=== PATIENT | female | born 1970 | race Two or more races ===

== ENCOUNTER 2018-11-24 16:32 | Emergency (ER) | payer OTHER ==
[~2018-11-24] VITALS: Ht 154.9 cm; Wt 69.4 kg
== END 2018-11-24 18:13 | disposition home or self-care (01) ==
LOC: ER 16:32
DX: S01.82XA Laceration with foreign body of other part of head, initial encounter (principal); W54.0XXA Bitten by dog, initial encounter; Y93.89 Activity, other specified; Y92.89 Other specified places as the place of occurrence of the external cause; Y99.8 Other external cause status

== ENCOUNTER 2022-01-08 17:06 | Emergency (ER) | payer OTHER ==
[~2022-01-08] VITALS: Ht 154.9 cm; Wt 68.9 kg
== END 2022-01-08 21:09 | disposition home or self-care (01) ==
LOC: ER 17:06
DX: S60.012A Contusion of left thumb without damage to nail, initial encounter (principal); X58.XXXA Exposure to other specified factors, initial encounter; Y93.89 Activity, other specified; Y92.89 Other specified places as the place of occurrence of the external cause; Y99.9 Unspecified external cause status

== ENCOUNTER 2024-03-01 19:22 | Emergency (ER) | payer OTHER ==
[~2024-03-01] VITALS: Ht 160 cm; Wt 71.7 kg
[2024-03-01 21:52] LABS: HEMOGLOBIN 13.6 g/dL (12.0-15.00); MEAN CELL VOLUME 88.3 fL (80.00-100.00); MEAN CORPUSCULAR HGB CONC 33.9 g/dl (32.0-36.0); PLATELET COUNT 213 K/uL (150-450); RED BLOOD COUNT 4.53 M/uL (4.00-6.00); RED CELL DISTRIBUTION WIDTH 13.4 % (11.5-14.5)
[2024-03-01] MEDS ORDERED: KETOROLAC TROMETHAMINE 30 MG VIAL IM STA (22:07)
[2024-03-01] MEDS ORDERED: GUAIFENESIN 200 MG/10 ML BLIST.PACK PO STA (22:09)
[2024-03-01] MEDS ORDERED: KETOROLAC TROMETHAMINE 30 MG VIAL ONE (22:24)
[2024-03-01] MEDS ORDERED: GUAIFENESIN 200 MG/10 ML BLIST.PACK PO ONE (22:25)
== END 2024-03-01 22:32 | disposition home or self-care (01) ==
LOC: ER 19:24
PROVIDERS: General Practice
DX: R53.81 Other malaise (principal); J10.1 Influenza due to other identified influenza virus with other respiratory manifestations; Z20.822 Contact with and (suspected) exposure to COVID-19